=== PATIENT | female | born 2000 | race Caucasian/White ===

== ENCOUNTER 2018-10-04 16:51 | Outpatient (REF) | payer BC, SELFPAY ==
[2018-10-08 13:52] LABS: Chlamydia Result Negative; GC Result Negative; Specimen Description URINE
== END 2018-10-04 17:11 ==
LOC: LBN 16:51
PROVIDERS: PCP Surgery; Visit Provider Nurse Practitioner Family
DX: Z11.3 Encounter for screening for infections with a predominantly sexual mode of transmission (principal)
CPT/HCPCS: 87491; 87591

== ENCOUNTER 2019-12-09 10:17 | Outpatient (REF) | payer OTHER, SELFPAY ==
--- NOTE | 2019-12-09 09:30 | PAPFT_PTH ---
PATIENT: Heidi Chamberlain LOC: [facility] U#:[id number] AGE/SX: 19/F ROOM: RE12/09/[address]: SHAQUILLE Rodriguez : 2000 BED: DIS: 12/09/2019 SPEC #: [id number] RECD: 12/09/19 13:02 STATUS: BUSTER RELauryn #: [id number] HERON: 12/09/19 09:[address]: Sonya Almonte DEPT: [facility] Cytology RECD BY: Kely Loya ENTERED: 12/09/19 13:02 SP TYPE: PAPFT OTHR DR: Latonia Colunga MD Tissues: 1 - CX/ENDOCX FOR PAP SMEARS Procedures: PAP THIN PREP/[facility] Screening Comments: [id number]
[2019-12-11 13:06] LABS: Chlamydia Result Negative (Negative); GC Result Negative (Negative)
== END 2019-12-09 10:37 ==
LOC: LBN 10:17
PROVIDERS: PCP Surgery; Visit Provider Nurse Practitioner Family
DX: Z11.3 Encounter for screening for infections with a predominantly sexual mode of transmission (principal); Z12.4 Encounter for screening for malignant neoplasm of cervix
CPT/HCPCS: 87491; 87591; 88142

== ENCOUNTER 2021-04-06 10:31 | Outpatient (REF) | payer OTHER, SELFPAY ==
--- NOTE | 2021-04-06 10:10 | PAPFT_PTH ---
PATIENT: Heidi Chamberlain LOC: [facility] U#:[id number] AGE/SX: 20/F ROOM: RE04/06/[address]: SHAQUILLE Rodriguez : 2000 BED: DIS: 04/06/2021 SPEC #: [id number] RECD: 04/06/21 12:52 STATUS: BUSTER RELauryn #: [id number] HERON: 04/06/21 10:[address]: Sonya Almonte [facility]PT[facility] Cytology RECD BY: Kely Loya ENTERED: 04/06/21 12:52 SP TYPE: PAPFT MARGOT DR: Latonia Colunga MD Tissues: 1 - CX/ENDOCX FOR PAP SMEARS Procedures: PAP THIN PREP/[facility] Screening Comments: [id number]
== END 2021-04-06 10:32 | disposition home or self-care (01) ==
LOC: LBN 10:31
PROVIDERS: PCP Surgery; Visit Provider Nurse Practitioner Family
DX: Z12.4 Encounter for screening for malignant neoplasm of cervix (principal)
CPT/HCPCS: 88142

== ENCOUNTER 2021-08-24 18:09 | Outpatient (REF) | payer OTHER, SELFPAY ==
[2021-08-26 10:16] LABS: COVID-19 RT-PCR UVMMC Result Negative (Negative)
== END 2021-08-24 18:10 | disposition home or self-care (01) ==
LOC: LBN 18:09
PROVIDERS: PCP Surgery; Visit Provider Physician Assistant
DX: J02.9 Acute pharyngitis, unspecified (principal); Z20.822 Contact with and (suspected) exposure to COVID-19
CPT/HCPCS: U0003; 87070

== ENCOUNTER 2022-02-16 01:21 | Outpatient (CLI) | payer BC, SELFPAY ==
[2022-02-16 13:01] LABS: HCT 37.3 % (36.0-46.0); HGB 11.7 g/dL (11.2-15.7); MCH 29.5 pg (27.0-33.0); MCHC 31.4 % (32.0-36.0); MCV 94 fL (80-95); MPV 10.3 fL (8.0-11.0); Platelet Count 386 10^3/uL (130-400); RBC 3.97 10^6/uL (3.93-5.22); RDW-SD 41.7 fL; WBC 9.92 10^3/uL (4.4-10.8)
[2022-02-16 13:30] LABS: Calculated LDL 140 mg/dL (<100); Cholesterol 224 mg/dL (<200); HDL Cholesterol 73 mg/dL (40-60); Triglyceride 58 mg/dL (<150)
[2022-02-16 13:31] LABS: Iron 85 ug/dL (50-170); Total Iron Binding Capacity 394 ug/dL (250-450); Transferrin Sat 22 % (15-50)
[2022-02-16 13:46] LABS: Hemoglobin A1C 5.2 % (<5.7)
== END 2022-02-16 01:22 | disposition home or self-care (01) ==
LOC: LOS 01:22
PROVIDERS: PCP Nurse Practitioner; Visit Provider Nurse Practitioner
DX: R53.83 Other fatigue (principal); Z13.1 Encounter for screening for diabetes mellitus; Z13.6 Encounter for screening for cardiovascular disorders
CPT/HCPCS: 36415; 80061; 85027; 83036; 83540; 83550

== ENCOUNTER 2024-10-07 20:15 | Outpatient (REF) | payer BC, SELFPAY ==
--- NOTE | 2024-10-07 16:10 | PAPFT_PTH ---
PATIENT: Heidi Chamberlain LOC: [facility] U#:[id number] AGE/SX: 24/F ROOM: RE10/07/[address]: Joseline Gonzalez NP : 2000 BED: DIS: 10/07/2024 SPEC #: [id number] RECD: 10/08/24 12:54 STATUS: BUSTER RELauryn #: [id number] HERON: 10/07/24 16:[address]: Joseline Gonzalez DEPT: [facility] Cytology RECD BY: Kely Loya Tissues: 1 - CX/ENDOCX FOR PAP SMEARS Procedures: PAP THIN PREP/[facility] Screening Comments: [id number]
[2024-10-07 21:44] LABS: HCT 38.4 % (36.0-46.0); HGB 12.6 g/dL (11.2-15.7); MCH 30.5 pg (27.0-33.0); MCHC 32.8 % (32.0-36.0); MCV 93 fL (80-95); MPV 10.4 fL (8.0-11.0); Platelet Count 393 10^3/uL (130-400); RBC 4.13 10^6/uL (3.93-5.22); RDW 11.8 % (11.7-14.6); RDW-SD 40.2 fL; WBC 8.84 10^3/uL (4.4-10.8)
[2024-10-07 22:02] LABS: ALT 27 U/L (14-59); AST 19 U/L (15-37); Albumin 3.7 g/dL (3.4-5.0); Alkaline Phosphatase 62 U/L (46-116); Anion Gap 9.9 mmol/L (3-11); BUN 10 mg/dL (7-18); Bilirubin, Total 0.18 mg/dL (0.2-1.0); CO2 24.1 mmol/L (21.0-32.0); CREATININE 0.8 mg/dL (0.55-1.02); Calcium 9.2 mg/dL (8.5-10.1); Calculated LDL 167 mg/dL (<100); Chloride 106 mmol/L (98-107); Cholesterol 255 mg/dL (<200); Estimated GFR 104.15 (mL/min/1.73m2); Glucose 89 mg/dL (74-106); HDL Cholesterol 69 mg/dL (40-60); Potassium 4.2 mmol/L (3.5-5.1); Sodium 140 mmol/L (136-145); TSH (W/Ref FT4) 1.78 uIU/mL (0.36-3.74); Total Protein 7.1 g/dL (6.4-8.2); Triglyceride 99 mg/dL (<150)
== END 2024-10-07 20:16 | disposition home or self-care (01) ==
LOC: LBN 20:15
PROVIDERS: PCP Nurse Practitioner Family; Visit Provider Nurse Practitioner Family
DX: Z00.00 Encounter for general adult medical examination without abnormal findings (principal); F41.9 Anxiety disorder, unspecified; F42.9 Obsessive-compulsive disorder, unspecified; F32.A Depression, unspecified
CPT/HCPCS: 80053; 80061; 85027; 88142; 84443